=== PATIENT | female | born 1970 | race American Indian/Alaskan Native ===

== ENCOUNTER 2017-10-31 11:40 | Emergency (ER) | payer SELFPAY ==
--- NOTE | 2017-10-31 12:48 | XRay Report ---
ROUTINE CHEST, TWO VIEWS: HISTORY: Chest pain, history of pneumothorax. The right chest tube has been removed since 10/26/17. The lungs are clear and adequately aerated. No recurrent pneumothorax is visualized. Normal heart and mediastinal structures. Normal bony thorax. IMPRESSION: Unremarkable chest x-ray.
[2017-10-31 15:00] LABS: Basophils # (Auto) 0.1 K/mm3 (0.0-0.1); Basophils % (Auto) 0.9 % (0.0-1.8); Eosinophils # (Auto) 0.2 K/mm3 (0.0-0.4); Hematocrit 38.3 % (30.3-42.9); Hemoglobin 12.9 gm/dl (10.1-14.3); Lymphocytes # (Auto) 1.7 K/mm3 (1.2-5.4); Lymphocytes % (Auto) 22.5 % (13.4-35.0); Mean Corpuscular HGB Conc 34 % (30-34); Mean Corpuscular Hemoglobin 30 pg (28-32); Mean Corpuscular Volume 90 fl (79-97); Monocytes # (Auto) 0.5 K/mm3 (0.0-0.8); Monocytes % (Auto) 6.8 % (0.0-7.3); Platelet Count 280 K/mm3 (140-440); Red Blood Count 4.27 M/mm3 (3.65-5.03); Red Cell Distribution Width 13.7 % (13.2-15.2)
[2017-10-31 15:18] LABS: BUN/Creatinine Ratio 14; Blood Urea Nitrogen 10 mg/dL (7-17); Hemolysis Index 0
[2017-10-31] MEDS ORDERED: TYLENOL PO ONE (16:25)
[2017-10-31] MEDS ORDERED: TORADOL IM ONE (16:25)
--- NOTE | 2017-10-31 16:41 | Emergency Department Report ---
HPI - General Chief Complaint: Chest Pain Time Seen by Provider: 10/31/17 14:07 - HPI HPI: The patient is a 47-year-old female presents for evaluation of chest pain. The patient's one week status post right chest tube placement for treatment of pneumothorax. The patient reports recurrence of right-sided chest pain 4 days ago, one day at the release from the hospital, exacerbated with movement of the right arm at the shoulder joint and deep breaths when attempting to use incentive spirometer, sharp in quality, moderate in severity. The patient has fever, trauma to the chest or thorax, cough, dyspnea, hemoptysis, unilateral leg swelling, oral contraceptive use, recent immobilization, history of DVT or PE, hx of recent cancer. ED Past Medical Hx - Past Medical History Additional medical history: left thumb, [place] right lung - Surgical History Additional Surgical History: left thumb surgery, - Social History Smoking Status: Never Smoker Substance Use Type: Alcohol - Medications Home Medications: Home Medications Medication Instructions Recorded Confirmed Last Taken Type Fluconazole [Diflucan] 100 mg PO QDAY #5 bottle 10/26/17 Unknown Rx Guaifenesin/Pseudoephedrne HCl 1 each PO Q12H #10 tab.er.12h 10/26/17 Unknown Rx [Mucinex D ER 600-60 mg Tablet] Levofloxacin [Levaquin] 750 mg PO QDAY #7 tablet 10/26/17 Unknown Rx Cyclobenzaprine HCl [Flexeril 5 MG 5 mg PO Q8HR PRN #12 tab 10/31/17 Unknown Rx TAB] Ibuprofen [Motrin] 800 mg PO Q8HR PRN #15 tablet 10/31/17 Unknown Rx Ondansetron [Zofran TAB] 4 mg PO Q8HR PRN #15 tablet 10/31/17 Unknown Rx ED Review of Systems ROS: Stated complaint: CHEST PAIN Other details as noted in HPI Constitutional: denies: fever ENT: denies: throat or neck pain Respiratory: denies: cough, shortness of breath Cardiovascular: reports chest pain Endocrine: denies unexplained weight loss or gain Gastrointestinal: denies: abdominal pain, nausea Genitourinary: denies: dysuria Musculoskeletal: denies: leg swelling Skin: denies: rash Neurological: denies: headache Hematological/Lymphatic: denies: easy bleeding or easy bruising Psych: denies sadness or hopelessness Physical Exam - Physical Exam Vital Signs: Vital Signs 10/31/17 10/31/17 11:51 15:13 Temperature 97.9 F 97.9 F Pulse Rate 100 H 70 Respiratory 17 15 Rate Blood Pressure 104/78 Blood Pressure 134/70 [Left] O2 Sat by Pulse 100 100 Oximetry Physical Exam: General: well-nourished, well-developed, no acute distress Head: Normocephalic, atraumatic Eyes: normal sclera ENT: Mucous membranes are pink and moist Neck: trachea midline, neck supple, No neck stiffness, no cervical adenopathy Respiratory: Breath sounds equal bilaterally, no wheezing, rales, or rhonchi Cardio: S1 and S2 present, no murmurs, rubs, gallops, capillary refill is brisk Abdomen: Normoactive bowel sounds, soft abdomen, no tenderness Chest WALL/Back: tenderness to palpation of the right lateral chest wall at the ant axillary line of ICS 2-4, no CVA tenderness with percussion Musc: No pitting edema Skin: No rash Neuro: no facial drooping, normal speech Psych: Normal affect ED Course Vital Signs 10/31/17 10/31/17 11:51 15:13 Temperature 97.9 F 97.9 F Pulse Rate 100 H 70 Respiratory 17 15 Rate Blood Pressure 104/78 Blood Pressure 134/70 [Left] O2 Sat by Pulse 100 100 Oximetry ED Medical Decision Making - Lab Data Result diagrams: 10/31/17 14:45 10/31/17 14:45 - Medical Decision Making The patient was seen and examined by myself. 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 On initial evaluation, the patient was found to be in no distress. EKG was negative for findings suggestive of acute cardiac infarct. Labs and imaging are obtained. The patient is given IM dose of Toradol for pain. Chest x-ray is negative for pneumothorax, focal consolidation , pulmonary vascular congestion, pleural effusion, or other obvious acute cardiopulmonary disease process. Lab results were non-concerning including levels of troponin, WBC, hemoglobin, hematocrit, electrolytes, renal function. The patient was reevaluated and reported that their symptoms were markedly improved. As the patient has a YAS risk score less than 2, and a well's score less than 2, the patient is at low risk of ACS or pulmonary emboli etiology of their symptoms. The patient is stable for discharge with outpatient follow-up. The patient is given follow-up and return instructions. The patient expressed understanding and agreed with the plan. The patient is discharged in stable condition. Critical care attestation.: If time is entered above; I have spent that time in minutes in the direct care of this critically ill patient, excluding procedure time. ED Disposition Clinical Impression: Acute chest pain, Chest wall pain Disposition: TO HOME OR SELFCARE Is pt being admited?: No Does the pt Need Aspirin: No Condition: Stable Instructions: Chest Pain (ED), Thoracic Pain (ED) Referrals: [facility] [Outside] - 3-5 Days Time of Disposition: 16:36
[2017-10-31 17:17] VITALS: BP 109/81
== END 2017-10-31 17:30 | disposition home or self-care (01) ==
LOC: ED 11:40
DX: R07.89 Other chest pain (principal); Z88.6 Allergy status to analgesic agent
CPT/HCPCS: 36415; 71046; 80048; 83880; 84484; 85025; 96372; 99284; J1885